=== PATIENT | female | born 1930 | race Caucasian/White ===

== ENCOUNTER 2017-03-12 07:40 | Inpatient (IN) ==
--- OUTSIDE RECORDS SUMMARY | 2017-03-12 08:09 | External Medical Summary ---
:1930 Author Organization eClinicalWorks Care Team Providers Name Role Phone Suri Morris Provider Role Unavailable Allergies, Adverse Reactions, Alerts Substance Reaction Event Type N.K.D.A. Info Not Available Non Drug Allergy Problems Problem Type Condition Code Onset Dates Condition Status Assessment Painful urination R30.9 Active Assessment Polyarthralgia M25.50 Active Problem Polyarthralgia M25.50 Active Assessment Urinary tract infection without N39.0 Active hematuria, site unspecified Medications Medication Code System Code Instructions Start Date End Date Status Dosage Keflex NDC 06392-639 500 mg Orally September 17, 1 capsule 7-20 Twice a day 2015 Pyridium NDC 01489-105 200 MG Orally September 17, 1 tablet 1-24 Three times a day 2016 after meals [place] NDC [address]7942-984 10-325 MG Orally August 20, 1 tablet 0-73 every 6 hrs 2016 Procedures Procedure Coding System Code Date Office Visit, Est Pt., Level 3 CPT-4 15732 September 18, 2015 TOBACCO NON-USER CPT-4 1036F September 18, 2015 URINALYSIS CPT-4 64372 September 18, 2015 BP SCR PRFRM RCMDD DEFIND SCR INTVL CPT-4 G8783 September 18, 2015 Vital Signs Date/Time: September 18, 2015 Weight 159.0 lbs Height 64 in Temperature 98.2 F Pulse 75 /min Blood Pressure Diastolic 66 mm Hg Blood Pressure Systolic 133 mm Hg Weight Change -1.8 lb lbs BMI 27.29 Index Oximetry 93%RA % Results Name Result Date Reference Range Unit Abnormality Flag *Urine Culture ----Urine Culture Source: Urine [id number] Collected: 09/18/15 13:50 Summary Purpose eClinicalWorks Submission
--- OUTSIDE RECORDS SUMMARY | 2017-03-12 08:09 | External Medical Summary ---
:1930 Author Organization [employer] Care Team Providers Name Role Phone Franklin Hu Provider Role Unavailable Allergies No Known Allergies Problems Problem Type Condition Code Onset Dates Condition Status Assessment Polyarthralgia M25.50 Active Problem Polyarthralgia M25.50 Active Medications Medication Code System Code Instructions Start Date End Date Status Dosage [facility] 2001 [address] 10-325 MG Orally August 20 tablet -73 every 6 hrs 2015 Results No Known Results Summary Purpose [employer] Submission
--- OUTSIDE RECORDS SUMMARY | 2017-03-12 08:09 | External Medical Summary ---
:1930 Author Organization eClinicalWorks Care Team Providers Name Role Phone Dalton Aparicio Provider Role Unavailable Allergies No Known Allergies Problems Problem Type Condition Code Onset Dates Condition Status Problem Polyarthralgia M25.50 Active Medications No Known Medications Results No Known Results Summary Purpose eClinicalWorks Submission
--- OUTSIDE RECORDS SUMMARY | 2017-03-12 08:09 | External Medical Summary ---
:1930 Author Organization eClinicalWorks Care Team Providers Name Role Phone Dalton Aparicio Provider Role Unavailable Allergies, Adverse Reactions, Alerts Substance Reaction Event Type N.K.D.A. Info Not Available Non Drug Allergy Problems Problem Type Condition Code Onset Dates Condition Status Assessment Chronic pain syndrome G89.4 Active Problem Polyarthralgia M25.50 Active Medications Medication Code System Code Instructions Start Date End Date Status Dosage [place] [facility] [address] 10-325 MG Orally Apr 16, 1 tablet as 0-73 every 12 hrs 2015 [place] [address] 0.5 MG Orally July 15July 16, 1 tablet 0-01 every12 hrs 2015 2015 [place] [address] 10-325 MG Orally August 20, 1 tablet 0-73 every 6 hrs 2015 Cipro NDC 94725-502 250 MG Orally July 15July 22, 1 tablet 8-02 every 12 hrs 2015 2015 Procedures Procedure Coding System Code Date TOBACCO NON-USER CPT-4 1036F August 21, 2015 BP SCR PRFRM RCMDD DEFIND SCR INTVL CPT-4 G8783 August 21, 2015 Office Visit, Est Pt., Level 3 CPT-4 04899 August 21, 2015 Vital Signs Date/Time: August 21, 2015 Weight 160.8 lbs Height 64 in Temperature 98.2 F Pulse 86 /min Blood Pressure Diastolic 64 mm Hg Blood Pressure Systolic 117 mm Hg Weight Change .6 lb lbs BMI 27.60 Index Oximetry 94% ra % Results No Known Results Summary Purpose [employer]ClinicalWorks Submission
--- OUTSIDE RECORDS SUMMARY | 2017-03-12 08:10 | External Medical Summary ---
:1930 Author Organization [employer]ClinicalWorks Care Team Providers Name Role Phone Suri Morris Provider Role Unavailable Allergies, Adverse Reactions, Alerts Substance Reaction Event Type N.K.D.A. Info Not Available Non Drug Allergy Problems Problem Type Condition Code Onset Dates Condition Status Problem History of smoking for 6-10 years Z87.891 Active Problem Polyarthralgia M25.50 Active Problem Generalized anxiety disorder F41.1 Active Assessment Impacted cerumen of left ear H61.22 Active Assessment Polyarthralgia M25.50 Active Assessment Generalized anxiety disorder F41.1 Active Medications Medication Code Code Instructions Start End Date Status [place] [address]-79 10 MG Orally Nov 14, 1 tablet Oxalate 51-01 Once a day 2015 [place] [address] 325-10 MG Orally Oct 16, 1 tablet as 51-30 every 6 hrs 2016 [place] [address]-76 6.5 % Otic Twice Jan 16, 5 drops 91-59 a day 2016 into affected ear Procedures Procedure Coding System Code Date TOBACCO NON-USER CPT-4 1036F Jan 17, 2016 PREHTN/HTN BP DOC INDCD F/U DOC CPT-4 G8950 Jan 17, 2016 Office Visit, Est Pt., Level 3 CPT-4 71602 Jan 17, 2016 Vital Signs Date/Time: Jan 17, 2016 Weight 158.0 lbs Height 64 in Temperature 97.5 F Pulse 70 /min Blood Pressure Diastolic 60 mm Hg Blood Pressure Systolic 112 mm Hg Weight Change 1.2 lb lbs BMI 27.12 Index Oximetry 93%RA % Results No Known Results Summary Purpose eClinicalWorks Submission
--- OUTSIDE RECORDS SUMMARY | 2017-03-12 08:10 | External Medical Summary ---
:1930 Author Organization eClinicalWorks Care Team Providers Name Role Phone Franklin Hu Provider Role Unavailable Allergies, Adverse Reactions, Alerts Substance Reaction Event Type N.K.D.A. Info Not Available Non Drug Allergy Problems Problem Type Condition Code Onset Dates Condition Status Assessment Breast lump in female N63 Active Assessment History of smoking for 6-10 years Z87.891 Active Problem Polyarthralgia M25.50 Active Assessment Medicare annual wellness visit, Z00.00 Active initial Problem History of smoking for 6-10 years Z87.891 Active Assessment Screening for heart disease Z13.6 Active Assessment Bilateral impacted cerumen H61.23 Active Assessment High risk medication use Z79.899 Active Assessment Polyarthralgia M25.50 Active Medications Medication Code System Code Instructions Start Date End Date Status Dosage Keflex NDC 64812-302 500 mg Orally September 17, 1 capsule 7-20 Twice a day 2015 Pyridium NDC [address]-966 200 MG Orally September 17, 1 tablet 1-24 Three times a day 2016 after meals [place] NDC 50385-609 6.5 % Otic daily September 23, 3 ggts to 1-59 2015 susan ears [place] NDC [address]-835 10-325 MG Orally August 20, 1 tablet 0-73 every 6 hrs 2016 Procedures Procedure Coding System Code Date COMPREHEN METABOLIC PANEL CPT-4 67064 September 24, 2015 CHEST X-RAY CPT-4 70708 September 24, 2015 COMPLETE CBC W/AUTO DIFF WBC CPT-4 23470 September 24, 2015 BP SCR PRFRM RCMDD DEFIND SCR INTVL CPT-4 G8783 September 24, 2015 LIPID PANEL CPT-4 48910 September 24, 2015 -ELECTROCARDIOGRAM, COMPLETE CPT-4 79893 September 24, 2015 TOBACCO NON-USER CPT-4 1036F September 24, 2015 Medicare Wellness CPT-4 G0438 September 24, 2015 Vital Signs Date/Time: September 24, 2015 Weight 157.0 lbs Height 64 in Temperature 97.9 F Pulse 75 /min Blood Pressure Diastolic 70 mm Hg Blood Pressure Systolic 110 mm Hg Weight Change -2 lb lbs BMI 26.95 Index Oximetry 96% % Results Name Result Date Reference Range Unit Abnormality Flag *CBC With Platelet and Differential ----Immature Granulocytes 0.0 75962078 0.0-1.0 % ----Platelet Count 233 56375362 150-400 K/uL ----Monocytes 9 10548121 4-11 % ----HGB 12.2 26041259 12.0-16.0 g/dL ----Lymphocytes 24 51189746 20-46 % ----HCT 38.8 30807124 37.0-47.0 % ----Neutrophils 66 11436667 51-75 % ----MCV 90.0 09695550 82.0-99.0 fL ----Absolute Basophils 0.01 43070325 0.00-0.20 10*3 ----MCH 28.3 56471867 27.0-32.0 pg ----Absolute Eosinophils 0.07 58551348 0.00-0.50 10*3 ----MCHC 31.4 88468496 32.0-36.0 g/dL L ----Eosinophils 1 62088408 0-4 % ----Absolute Monocytes 0.61 61942417 0.30-1.00 10*3 ----RDW 14.4 81535601 11.5-14.5 % ----Basophils 0 35461468 0-2 % ----WBC 6.9 65607322 4.8-10.8 K/uL ----MPV 11.8 44379604 8.8-14.8 fL ----Absolute Lymphocytes 1.63 89821528 0.80-3.30 10*3 ----RBC 4.31 85042959 4.00-5.20 10*6/uL ----Absolute Neutrophils 4.57 24955685 1.90-7.00 10*3 *Comprehensive Metabolic Panel (CMP) ----AST (SGOT) 14 46876067 5-34 U/L ----Sodium 140 40678324 135-144 mEq/L ----Calcium 9.6 61159778 8.9-10.5 mg/dL ----ALT (SGPT) 11 17291257 0-55 U/L ----Chloride 106 86195405 99-111 mEq/L ----Protein 7.3 04933894 6.0-7.6 g/dL ----Potassium 4.7 15723548 3.5-5.2 mEq/L ----Alkaline Phosphatase 81 42909622 40-150 U/L ----Glucose 79 33883299 70-99 mg/dL ----Globulin 3.0 84906891 1.8-4.0 g/dL ----Creatinine 0.76 94176538 0.57-1.11 mg/dL ----Anion Gap 9 81710186 3-20 ----BUN 19 10437362 10-20 mg/dL ----Bilirubin Total 0.5 51317136 0.2-1.2 mg/dL ----CO2 25 57624601 22-31 mEq/L ----Albumin 4.3 35471775 3.4-4.8 g/dL Chest X-ray PA and lateral Electrocardiogram (EKG) Non-HDL Cholesterol ----Non-HDL Cholesterol 217 97140463 0-159 mg/dL H eGFR ----eGFR >60 60220405 >60 mL/min *Lipid Panel ----HDL Cholesterol 55 34350576 40-84 mg/dL ----Triglycerides 134 99576006 0-149 mg/dL ----VLDL Cholesterol 27 99745474 0-28 mg/dL ----LDL Cholesterol 190 00611210 0-130 mg/dL H ----Cardiac Risk 4.9 24217440 0.0-5.0 ----Cholesterol 272 21017563 0-199 mg/dL H Summary Purpose eClinicalWorks Submission
[2017-03-12] MEDS ORDERED: PROCHLORPERAZINE 10 MG/2 ML INJECTION IVP ONE (08:26)
[2017-03-12] MEDS ORDERED: NS 1,000 ML IV ONE (08:26)
[2017-03-12] MEDS ORDERED: SALINE FLUSH 10ml SYRINGE IVF PRN (08:26)
--- NOTE | 2017-03-12 09:11 | XRay Report ---
Indication: n/v PROCEDURE: XR KUB w upright: Encounter: Initial Comparison: August 09, 2012 Findings: Lung bases are grossly clear. No free air identified. Nonobstructive nonspecific bowel gas pattern. Large amount of stool throughout the colon. Scoliosis and degenerative change in the spine with numerous chronic compression fractures in the lower thoracic and lumbar spine. Right femoral head replacement. Impression: Nonobstructive, nonspecific bowel gas pattern. .
--- NOTE | 2017-03-12 09:49 | Emergency Department Report ---
General Adult HPI - General Chief complaint: Medical Emergency Stated complaint: dehydrated,vominiting,cant sleep,cant urninate Time Seen by Provider: 03/12/17 07:46 - Related Data Home Medications Medication Instructions Recorded Confirmed Escitalopram [Lexapro] 10 mg PO HS 03/09/17 03/12/17 Hydrocodone/APAP 10/325 [[place] 1 tab PO Q6H PRN 03/09/17 03/12/17 10/325] Ibuprofen/Diphenhydramine Cit 1 each PO HS 03/09/17 03/12/17 [Advil Pm Caplet] Previous Rx's Medication Instructions Recorded CephALEXin [Keflex] 1 tab PO TID #21 cap 03/09/17 Ondansetron [Zofran Odt] 1 tab PO Q6HR PRN #12 tab 03/09/17 Allergies Allergy/AdvReac Type Severity Reaction Status Date / Time No Known Allergies Allergy Verified 03/12/17 07:54 PFSH Patient Stated Medical History Osteoarthritis Yes - Social History Smoking status: Former smoker Course Vital Signs Temperature 98.2 F 03/12/17 07:55 Pulse Rate 77 03/12/17 07:55 Respiratory Rate 16 03/12/17 07:55 Blood Pressure 131/67 03/12/17 07:55 Pulse Oximetry 94 03/12/17 07:55 Temperature 98.2 F 03/12/17 07:55 Pulse Rate 84 03/12/17 08:30 Respiratory Rate 16 03/12/17 07:55 Blood Pressure 138/60 03/12/17 08:30 Pulse Oximetry 96 03/12/17 08:30 Medical Decision Making - Lab Data Result diagrams: 03/12/17 08:23 03/12/17 08:23 Lab Results 03/12/17 03/12/17 03/12/17 Range/Units 08:23 08:23 09:51 WBC 5.8 (4.5-11.0) T/MM3 RBC 3.09 L (4.00-5.20) M/MM3 Hgb 8.8 L (12-16) GM/DL Hct 26.3 L (36-46) % MCV 85.1 (80-100) UM3 MCH 28.5 (26-34) UUG MCHC 33.5 (31-37) GM/DL RDW Std Deviation 38.0 (36.9-50.2) FL Plt Count 168 (130-400) T/MM3 MPV 10.6 (9.4-12.4) UM3 Immature Gran % (Auto) 0.2 (0.0-0.5) % Neut % (Auto) 63.4 (33-66) % Lymph % (Auto) 25.8 (23-45) % [place] % (Auto) 10.4 H (0-9.0) % Eos % (Auto) 0.2 (0-4) % Baso % (Auto) 0.0 (0-2) % Neut # (Auto) 3.7 (1.8-7.7) T/MM3 Lymph # (Auto) 1.5 (1-4.8) T/MM3 [place] # (Auto) 0.6 (0-0.8) T/MM3 Eos # (Auto) 0.0 (0-0.5) T/MM3 Baso # (Auto) 0.0 (0-0.2) T/MM3 Abs Immat Gran (auto) 0.01 (0.00-0.03) T/MM3 Turbidity < 20 (0-20) Sodium 119 L* (134-144) MEQ/L Potassium 3.2 L D (3.6-5) MEQ/L Chloride 89 L (98-107) MEQ/L Carbon Dioxide 24 (22-30) MEQ/L Anion Gap 6 (5-15) MEQ/L BUN 11.0 D (7-17) MG/DL Creatinine 0.6 L (0.7-1.2) MG/DL GFR Calculation 95 BUN/Creatinine Ratio 18 (6-26) RATIO Glucose 99 (65-110) MG/DL Calculated Osmolality 229 L (261-280) MOSM/KG Calcium 8.8 (8.4-10.2) MG/DL Total Bilirubin 0.50 (0.20-1.30) MG/DL Icterus Index < 2 (0-7) AST 32 D (14-36) U/L ALT 38 (9-52) U/L Alkaline Phosphatase 103 (38-126) U/L Total Protein 6.6 (6.3-8.2) G/DL Albumin 3.6 (3.5-5.0) G/DL Globulin 3.0 (2.4-3.6) G/DL Albumin/Globulin Ratio 1.2 (1.1-2.2) RATIO Lipase 114 (23-300) U/L Specimen Hemolysis 17 (0-25) Ur Collection Type Urine, clean catch Urine Color Yellow (YELLOW) Urine Clarity Clear Urine pH 6.5 (5.0-8.0) Ur Specific [place] <=1.005 L (1.015-1.025) Urine Protein Negative (NEGATIVE) Urine Glucose (UA) Negative (NEGATIVE) Urine Ketones Negative (NEGATIVE) Urine Occult Blood Negative (NEGATIVE) Urine Nitrate Negative (NEGATIVE) Urine Bilirubin Negative (NEGATIVE) Urine Urobilinogen 0.2 (NORMAL) EU/DL Ur Leukocyte Esterase Negative (NEGATIVE) Urinalysis Comment Microscopic not ind. Disposition
[2017-03-12] MEDS ORDERED: ONDANSETRON 4 MG/2 ML INJECTION IVP PRN (10:42)
[2017-03-12] MEDS ORDERED: NS 1,000 ML IV SCH ×2 (10:43→10:45)
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
[2017-03-12 11:08] VITALS: BMI 26.6
[2017-03-12] MEDS ORDERED: HYDROCODONE/APAP 10 MG/325 MG TABLET PO PRN (11:10)
[2017-03-12] MEDS ORDERED: ACETAMINOPHEN 325 MG TABLET PO PRN (14:04)
[2017-03-12] MEDS: NS 1,000 ML IV SCH (14:50)
[2017-03-12] MEDS: DiphenhydrAMINE 25 MG CAPSULE PO SCH (20:56)
[2017-03-12] MEDS: IBUPROFEN 200 MG TABLET PO SCH (20:56)
[2017-03-12] MEDS ORDERED: NON-FORMULARY MEDICATION 1 EACH EACH (Ibuprofen/Diphenhydramine Cit [Advil Pm Caplet] 1 EA PO SCH (21:00)
[2017-03-13] MEDS: NS 1,000 ML IV SCH (05:21)
[2017-03-13] MEDS ORDERED: POLYETHYL GLYCOL 3350 17gm PACKET PO PRN (12:36)
[2017-03-13] MEDS ORDERED: BISACODYL 10 MG SUPPOSITORY RECTALLY PRN (12:36)
--- NOTE | 2017-03-13 14:27 | Progress Note ---
- Date 03/13/17 Subjective: F/U: Hyponatremia, weakness Feeling better today. Less weak (not 100% better), able to move more. Notes unsteadiness when up. Appetite decreased-takes bites of food. Not feeling hungry. Has been eating like this at home for some time. No nausea. Did have bowel movement following MOM use. Breathing well. No pain with breathing. Notes minor cough, but no chest congestion. Objective Vital signs: Temperature 98.7 F 03/13/17 07:57 Pulse Rate 87 03/13/17 08:00 Respiratory Rate 16 03/13/17 07:57 Blood Pressure 125/67 03/13/17 07:57 Pulse Oximetry 93 03/13/17 07:57 Height/Weight/BMI: Height 1.63 m Weight 70.5 kg Body Mass Index 26.6 - Constitutional Present: well nourished, well developed, average body habitus, cooperative - Routine HEENT Exam Head: Present: normocephalic, atraumatic Eye: Present: EOMI, PERRL ENT: Present: mucous membranes moist - Routine Respiratory Exam Present: decreased breath sounds. Absent: respiratory distress, rhonchi, wheezes, crackles - Routine Cardiovascular Exam Present: RRR, no murmur - Routine Abdominal Exam Present: soft, normoactive bowel sounds, non distended, non tender. Absent: guarding - Routine Extremities Exam Present: no edema. Absent: cyanosis, clubbing Comments: SCD in place - Routine Musculoskeletal Exam Musculoskeletal: Present: no clubbing or cyanosis - Routine Skin Exam Present: dry, warm - Routine Neurological Exam Present: alert, CN II-XII intact, moving all extremities, normal speech. Absent : motor deficit, altered mental status - Routine Psychiatric Exam Present: normal affect, cooperative Results - Labs CBC & Chem 7: 03/13/17 03:59 03/13/17 11:49 Assessment and Plan (1) Hyponatremia Current visit: Yes Status: Acute (2) Hypokalemia Current visit: Yes Status: Acute (3) Weakness Current visit: Yes Status: Acute Assessment and Plan: Impression Hyponatremia (POA) - 119 Hypokalemia (POA) - 3.2 Weakness Hypovolemia - FENa score 1% Neuropathy Anxiety Osteoarthritis History of cerebral hemorrhage/brain injury Anemia - suspect chronic disease Gait instability Generalized debility. Plan Sodium increased to 127 this morning, 132 with recheck at noon. Potassium normal at 3.8. Strength improving. Mentation clearing. Will continue with NS at 50cc/hr to help with hydration and normalize serum sodium. Consult PT/OT secondary to her generalize debility and gait instability. Nutritional supplement daily due to decreased oral drive. Check B12, iron and ferritin due to anemia. Recheck BMP in am secondary to hyponatremia and CBC in am secondary to anemia. Case discussed with CM and family. Time spent with patient care 25 minutes. DVT Prophylaxis: SCD's Resuscitation Status: Full Code - Time spent with patient Time with patient PN: 25 minutes - Physician Narrative Narrative: Date: 03/13/17 Time: 1423 Hospital Course Summary Disclaimer: The visit summary below is not to be considered part of the above Progress Note. Hospital Course: 03/12/17 - admission Impression Weakness Hyponatremia- POA- 199 Hypokalemia- POA- 3.2 Hypovolemia- FENa score 1% Neuropathy Anxiety Osteoarthritis History of cerebral hemorrhage/brain injury Plan Admit patient. Inpatient status under care of Dr. Espinosa for weakness, hyponatremia, hypokalemia Hyponatremia is likely multifactorial. Patient has had decreased oral intake recently. She is also been on Bactrim and Lexapro, both which can cause hyponatremia. We will initiate IV fluids. Patient did receive 1 liter of normal saline in the emergency room. We will continue with normal saline at 75 ML per hour for gentle hydration. We will check serial electrolytes, next lab draw at 1300. Zofran available as needed for nausea Urinalysis is rechecked and is negative for acute infectious process. In no evidence of acute infectious process, normal white count and afebrile. There is currently no indication to continue antibiotics. FENa- 1% indications likely Pre-renal hypovolemia Monitor patient. Cardiac telemetry given electrolyte abnormalities. Review home medications. Once patient is more medically stable. Will place PT and OT consultations to evaluate patients strength she does reside independently and ambulates with a cane generally. We'll recheck CBC and BMP tomorrow morning to follow blood counts, renal function and electrolytes. Will discuss further orders and plan a. Attending, Dr. Espinosa. Patients family does request for her to be a full code and this orders written. At time of discharge medical care will return to her primary care provider, Dr. Dalton Aparicio Above corrections Impression Correction of above document Impression Hyponatremia- POA- 119 Hypokalemia- POA- 3.2 Weakness Hypovolemia- FENa score 1% Neuropathy Anxiety Osteoarthritis History of cerebral hemorrhage/brain injury Plan Admit patient. Inpatient status under care of Dr. Espinosa for weakness, hyponatremia, hypokalemia Hyponatremia is likely multifactorial. Patient has had decreased oral intake recently. She is also been on Bactrim and Lexapro, both which can cause hyponatremia. We will initiate IV fluids. Patient did receive 1 liter of normal saline in the emergency room. We will continue with normal saline at 75 ML per hour for gentle hydration. We will check serial electrolytes, next lab draw at 1300. Zofran available as needed for nausea Urinalysis is rechecked and is negative for acute infectious process. In no evidence of acute infectious process, normal white count and afebrile. There is currently no indication to continue antibiotics. FENa- 1% indications likely Pre-renal hypovolemia Monitor patient. Cardiac telemetry given electrolyte abnormalities. Review home medications. Once patient is more medically stable. Will place PT and OT consultations to evaluate patients strength she does reside independently and ambulates with a cane generally. We'll recheck CBC and BMP tomorrow morning to follow blood counts, renal function and electrolytes. Will discuss further orders and plan a. Attending, Dr. Espinosa. Patients family does request for her to be a full code and this orders written. At time of discharge medical care will return to her primary care provider, Dr. Dalton Aparicio 03/13/17 Sodium increased to 127 this morning, 132 with recheck at noon. Potassium normal at 3.8. Strength improving. Mentation clearing. Will continue with NS at 50cc/hr to help with hydration and normalize serum sodium. Consult PT/OT secondary to her generalize debility and gait instability. Nutritional supplement daily due to decreased oral drive. Check B12, iron and ferritin due to anemia. Recheck BMP in am secondary to hyponatremia and CBC in am secondary to anemia.
[2017-03-13] MEDS: IBUPROFEN 200 MG TABLET PO SCH (20:50)
[2017-03-13] MEDS: DiphenhydrAMINE 25 MG CAPSULE PO SCH (20:50)
[2017-03-14] MEDS: NS 1,000 ML IV SCH ×3 (02:28→09:31)
[2017-03-14] MEDS ORDERED: MAGNESIUM OXIDE 400 MG TABLET PO ONE (12:30)
--- NOTE | 2017-03-14 12:53 | Progress Note ---
- Date 03/14/17 Subjective: F/U: Hyponatremia, weakness Feeling a little better. Appetite with gradual improvements-less nausea. Breathing well. Strength with gradual improvement. No having f/c. Daughter at bedside. Objective Vital signs: Temperature 97.0 F 03/14/17 07:18 Pulse Rate 76 03/14/17 07:18 Respiratory Rate 18 03/14/17 07:18 Blood Pressure 138/77 03/14/17 07:18 Pulse Oximetry 97 03/14/17 07:18 Height/Weight/BMI: Height 1.63 m Weight 71.9 kg Body Mass Index 26.6 - Constitutional Present: well nourished, well developed, average body habitus, cooperative - Routine HEENT Exam Head: Present: normocephalic, atraumatic Eye: Present: EOMI, PERRL ENT: Present: mucous membranes moist - Routine Respiratory Exam Present: decreased breath sounds. Absent: rales, respiratory distress, rhonchi , wheezes, crackles - Routine Cardiovascular Exam Present: RRR, no murmur - Routine Abdominal Exam Present: soft, normoactive bowel sounds, non distended, non tender. Absent: guarding - Routine Extremities Exam Present: no edema, pulses intact. Absent: cyanosis, clubbing Comments: SCD in place - Routine Musculoskeletal Exam Musculoskeletal: Present: no clubbing or cyanosis - Routine Skin Exam Present: dry, warm - Routine Neurological Exam Present: alert, CN II-XII intact, moving all extremities, vision grossly intact , hearing grossly intact, normal speech. Absent: motor deficit, altered mental status - Routine Psychiatric Exam Present: normal affect, cooperative Results - Labs CBC & Chem 7: 03/14/17 03:56 03/14/17 03:56 Assessment and Plan (1) Hyponatremia Current visit: Yes Status: Acute (2) Hypokalemia Current visit: Yes Status: Acute (3) Weakness Current visit: Yes Status: Acute Assessment and Plan: Impression Hyponatremia (POA) - 119 Hypokalemia (POA) - 3.2 Weakness Hypovolemia - FENa score 1% Neuropathy Anxiety Osteoarthritis History of cerebral hemorrhage/brain injury Anemia - suspect chronic disease Gait instability Generalized debility. Plan Sodium increased to 131 this morning, Potassium decreased to 3.5. Strength improving. Mentation clearing. Continue with NS at 50cc/hr to help with hydration and normalize serum sodium. Nursing to ambulate TID to help strength. Encourage oral intake - may have outside food brought in. Discussed with daughter about potential skilled care to help improve pt's strength. Concern they have is that patient will want her daughters to be with her there. Recheck BMP in am secondary to hyponatremia and CBC in am secondary to anemia. Case discussed with CM and family. Time spent with patient care 25 minutes. DVT Prophylaxis: SCD's - Time spent with patient Time with patient PN: 15 minutes - Physician Narrative Physician: Nico Espinosa MD Narrative: Date: 03/14/17 Time: 1248 Hospital Course Summary Disclaimer: The visit summary below is not to be considered part of the above Progress Note. Hospital Course: 03/12/17 - admission Impression Weakness Hyponatremia- POA- 199 Hypokalemia- POA- 3.2 Hypovolemia- FENa score 1% Neuropathy Anxiety Osteoarthritis History of cerebral hemorrhage/brain injury Plan Admit patient. Inpatient status under care of Dr. Espinosa for weakness, hyponatremia, hypokalemia Hyponatremia is likely multifactorial. Patient has had decreased oral intake recently. She is also been on Bactrim and Lexapro, both which can cause hyponatremia. We will initiate IV fluids. Patient did receive 1 liter of normal saline in the emergency room. We will continue with normal saline at 75 ML per hour for gentle hydration. We will check serial electrolytes, next lab draw at 1300. Zofran available as needed for nausea Urinalysis is rechecked and is negative for acute infectious process. In no evidence of acute infectious process, normal white count and afebrile. There is currently no indication to continue antibiotics. FENa- 1% indications likely Pre-renal hypovolemia Monitor patient. Cardiac telemetry given electrolyte abnormalities. Review home medications. Once patient is more medically stable. Will place PT and OT consultations to evaluate patients strength she does reside independently and ambulates with a cane generally. We'll recheck CBC and BMP tomorrow morning to follow blood counts, renal function and electrolytes. Will discuss further orders and plan a. Attending, Dr. Espinosa. Patients family does request for her to be a full code and this orders written. At time of discharge medical care will return to her primary care provider, Dr. Dalton Aparicio Above corrections Impression Correction of above document Impression Hyponatremia- POA- 119 Hypokalemia- POA- 3.2 Weakness Hypovolemia- FENa score 1% Neuropathy Anxiety Osteoarthritis History of cerebral hemorrhage/brain injury Plan Admit patient. Inpatient status under care of Dr. Espinosa for weakness, hyponatremia, hypokalemia Hyponatremia is likely multifactorial. Patient has had decreased oral intake recently. She is also been on Bactrim and Lexapro, both which can cause hyponatremia. We will initiate IV fluids. Patient did receive 1 liter of normal saline in the emergency room. We will continue with normal saline at 75 ML per hour for gentle hydration. We will check serial electrolytes, next lab draw at 1300. Zofran available as needed for nausea Urinalysis is rechecked and is negative for acute infectious process. In no evidence of acute infectious process, normal white count and afebrile. There is currently no indication to continue antibiotics. FENa- 1% indications likely Pre-renal hypovolemia Monitor patient. Cardiac telemetry given electrolyte abnormalities. Review home medications. Once patient is more medically stable. Will place PT and OT consultations to evaluate patients strength she does reside independently and ambulates with a cane generally. We'll recheck CBC and BMP tomorrow morning to follow blood counts, renal function and electrolytes. Will discuss further orders and plan a. Attending, Dr. Espinosa. Patients family does request for her to be a full code and this orders written. At time of discharge medical care will return to her primary care provider, Dr. Dalton Aparicio 03/13/17 Sodium increased to 127 this morning, 132 with recheck at noon. Potassium normal at 3.8. Strength improving. Mentation clearing. Will continue with NS at 50cc/hr to help with hydration and normalize serum sodium. Consult PT/OT secondary to her generalize debility and gait instability. Nutritional supplement daily due to decreased oral drive. Check B12, iron and ferritin due to anemia. Recheck BMP in am secondary to hyponatremia and CBC in am secondary to anemia. 03/14/17 Sodium increased to 131 this morning, Potassium decreased to 3.5. Strength improving. Mentation clearing. Continue with NS at 50cc/hr to help with hydration and normalize serum sodium. Nursing to ambulate TID to help strength. Encourage oral intake - may have outside food brought in. Discussed with daughter about potential skilled care to help improve pt's strength. Concern they have is that patient will want her daughters to be with her there.
[2017-03-14] MEDS: IBUPROFEN 200 MG TABLET PO SCH (21:18)
[2017-03-14] MEDS: DiphenhydrAMINE 25 MG CAPSULE PO SCH (21:19)
[2017-03-14 23:43] VITALS: RESP 22
[2017-03-15] MEDS: NS 1,000 ML IV SCH (01:29)
[2017-03-15 07:29] VITALS: BP 129/69; PULSE 90; TEMP 97; O2SAT 96
--- NOTE | 2017-03-15 13:24 | Progress Note ---
- Date 03/15/17 Subjective: F/U: Hyponatremia, weakness Doing well this morning. Strength to baseline. Eating well (eats small portions at a time, but has frequents snacks between meals). Breathing well. Mentation clear. Daughter at bedside, encouraged about patient's improvement. Does feel pt is doing well enough to go home. Objective Vital signs: Temperature 97.0 F 03/15/17 07:28 Pulse Rate 90 03/15/17 07:28 Respiratory Rate 22 03/15/17 07:28 Blood Pressure 129/69 03/15/17 07:28 Pulse Oximetry 96 03/15/17 07:28 Height/Weight/BMI: Height 1.63 m Weight 69.1 kg Body Mass Index 26.6 - Constitutional Present: no acute distress, well nourished, average body habitus, cooperative - Routine HEENT Exam Head: Present: normocephalic, atraumatic Eye: Present: EOMI, PERRL ENT: Present: mucous membranes moist - Routine Respiratory Exam Present: CTA bilaterally. Absent: respiratory distress, rhonchi, wheezes, crackles - Routine Cardiovascular Exam Present: RRR, no murmur - Routine Abdominal Exam Present: soft, normoactive bowel sounds, non distended, non tender - Routine Extremities Exam Present: no edema. Absent: cyanosis, clubbing Comments: SCD in place - Routine Musculoskeletal Exam Musculoskeletal: Present: normal strength. Absent: no clubbing or cyanosis - Routine Skin Exam Present: dry, warm - Routine Neurological Exam Present: alert, oriented X3, CN II-XII intact, moving all extremities, vision grossly intact, hearing grossly intact, normal speech. Absent: motor deficit, altered mental status - Routine Psychiatric Exam Present: cooperative. Absent: normal affect, agitated Results - Labs CBC & Chem 7: 03/15/17 04:18 03/15/17 04:18 Assessment and Plan (1) Hyponatremia Current visit: Yes Status: Acute (2) Hypokalemia Current visit: Yes Status: Acute (3) Weakness Current visit: Yes Status: Acute Assessment and Plan: Impression Hyponatremia (POA) - 119 Hypokalemia (POA) - 3.2 Weakness Hypovolemia - FENa score 1% Neuropathy Anxiety Osteoarthritis History of cerebral hemorrhage/brain injury Anemia - suspect chronic disease Gait instability Generalized debility. Plan Sodium has normalized to 135. Strength and mentation at baseline. Eating well. Breathing well. Vit B12, Iron, Jo Ann pending. Discussed about discharge - daughter feels patient ready to go home. Daughter does not feel skill care would be helpful-family very capable with pt's care needs. No evidence of urinary tract infection this hospitalization - does not need antibiotics. Can discharge to home. CM to discuss about possible home health. Will have patient follow up with Dr Busby in 1 week for evaluation. Recommend rechecking BMP at that time due to hyponatremia. Have held Lexapro this hospitalization - potentially could cause hyponatremia. If repeat sodium showing decrease at follow up, changes to Lexapro could be done. See orders for details. Case discussed with CM and family. Time spent with patient care and discharge greater than 30 minutes. DVT Prophylaxis: SCD's Resuscitation Status: Full Code - Physician Narrative Physician: Nico Espinosa MD Narrative: Date: 03/15/17 Time: 1321 Hospital Course Summary Disclaimer: The visit summary below is not to be considered part of the above Progress Note. Hospital Course: 03/12/17 - admission Impression Weakness Hyponatremia- POA- 199 Hypokalemia- POA- 3.2 Hypovolemia- FENa score 1% Neuropathy Anxiety Osteoarthritis History of cerebral hemorrhage/brain injury Plan Admit patient. Inpatient status under care of Dr. Espinosa for weakness, hyponatremia, hypokalemia Hyponatremia is likely multifactorial. Patient has had decreased oral intake recently. She is also been on Bactrim and Lexapro, both which can cause hyponatremia. We will initiate IV fluids. Patient did receive 1 liter of normal saline in the emergency room. We will continue with normal saline at 75 ML per hour for gentle hydration. We will check serial electrolytes, next lab draw at 1300. Zofran available as needed for nausea Urinalysis is rechecked and is negative for acute infectious process. In no evidence of acute infectious process, normal white count and afebrile. There is currently no indication to continue antibiotics. FENa- 1% indications likely Pre-renal hypovolemia Monitor patient. Cardiac telemetry given electrolyte abnormalities. Review home medications. Once patient is more medically stable. Will place PT and OT consultations to evaluate patients strength she does reside independently and ambulates with a cane generally. We'll recheck CBC and BMP tomorrow morning to follow blood counts, renal function and electrolytes. Will discuss further orders and plan a. Attending, Dr. Espinosa. Patients family does request for her to be a full code and this orders written. At time of discharge medical care will return to her primary care provider, Dr. Dalton Aparicio Above corrections Impression Correction of above document Impression Hyponatremia- POA- 119 Hypokalemia- POA- 3.2 Weakness Hypovolemia- FENa score 1% Neuropathy Anxiety Osteoarthritis History of cerebral hemorrhage/brain injury Plan Admit patient. Inpatient status under care of Dr. Espinosa for weakness, hyponatremia, hypokalemia Hyponatremia is likely multifactorial. Patient has had decreased oral intake recently. She is also been on Bactrim and Lexapro, both which can cause hyponatremia. We will initiate IV fluids. Patient did receive 1 liter of normal saline in the emergency room. We will continue with normal saline at 75 ML per hour for gentle hydration. We will check serial electrolytes, next lab draw at 1300. Zofran available as needed for nausea Urinalysis is rechecked and is negative for acute infectious process. In no evidence of acute infectious process, normal white count and afebrile. There is currently no indication to continue antibiotics. FENa- 1% indications likely Pre-renal hypovolemia Monitor patient. Cardiac telemetry given electrolyte abnormalities. Review home medications. Once patient is more medically stable. Will place PT and OT consultations to evaluate patients strength she does reside independently and ambulates with a cane generally. We'll recheck CBC and BMP tomorrow morning to follow blood counts, renal function and electrolytes. Will discuss further orders and plan a. Attending, Dr. Espinosa. Patients family does request for her to be a full code and this orders written. At time of discharge medical care will return to her primary care provider, Dr. Dalton Aparicio 03/13/17 Sodium increased to 127 this morning, 132 with recheck at noon. Potassium normal at 3.8. Strength improving. Mentation clearing. Will continue with NS at 50cc/hr to help with hydration and normalize serum sodium. Consult PT/OT secondary to her generalize debility and gait instability. Nutritional supplement daily due to decreased oral drive. Check B12, iron and ferritin due to anemia. Recheck BMP in am secondary to hyponatremia and CBC in am secondary to anemia. 03/14/17 Sodium increased to 131 this morning, Potassium decreased to 3.5. Strength improving. Mentation clearing. Continue with NS at 50cc/hr to help with hydration and normalize serum sodium. Nursing to ambulate TID to help strength. Encourage oral intake - may have outside food brought in. Discussed with daughter about potential skilled care to help improve pt's strength. Concern they have is that patient will want her daughters to be with her there. 03/15/17 Sodium has normalized to 135. Strength and mentation at baseline. Eating well. Breathing well. Vit B12, Iron, Jo Ann pending. Discussed about discharge - daughter feels patient ready to go home. Daughter does not feel skill care would be helpful-family very capable with pt's care needs. No evidence of urinary tract infection this hospitalization - does not need antibiotics. Can discharge to home. CM to discuss about possible home health. Will have patient follow up with Dr Busby in 1 week for evaluation. Recommend rechecking BMP at that time due to hyponatremia. Have held Lexapro this hospitalization - potentially could cause hyponatremia. If repeat sodium showing decrease at follow up, changes to Lexapro could be done. See orders for details.
--- NOTE | 2017-03-15 15:18 | Discharge Summary ---
Discharge Information Date of admission: 03/12/17 10:17 Anticipated date of discharge: 03/15/17 Attending Physician: Nico Espinosa MD Primary care physician: Dalton Aparicio MD Consults: PT/OT - Discharge Diagnosis (1) Hyponatremia Status: Acute (2) Hypokalemia Status: Acute (3) Weakness Status: Acute Discharge diagnosis Hyponatremia (POA) - 119 - resolved Associated conditions and complications Hypokalemia (POA) - 3.2 Weakness Hypovolemia - FENa score 1% Neuropathy Anxiety Osteoarthritis History of cerebral hemorrhage/brain injury Anemia - suspect chronic disease Gait instability Generalized debility. - Laboratory Labs: Admit Lab 03/12/17 08:23 WBC 5.8 Hgb 8.8 L Hct 26.3 L MCV 85.1 Plt Count 168 Neut % (Auto) 63.4 Lymph % (Auto) 25.8 [place] % (Auto) 10.4 H Eos % (Auto) 0.2 Admit Lab 03/12/17 08:23 Sodium 119 L* Potassium 3.2 L D Chloride 89 L Carbon Dioxide 24 Anion Gap 6 BUN 11.0 D Creatinine 0.6 L GFR Calculation 95 BUN/Creatinine Ratio 18 Glucose 99 Calculated Osmolality 229 L Calcium 8.8 Total Bilirubin 0.50 AST 32 D ALT 38 Alkaline Phosphatase 103 Total Protein 6.6 Albumin 3.6 Globulin 3.0 Albumin/Globulin Ratio 1.2 Lipase 114 TSH 03/14/17 03:56 TSH 0.70 Pending Lab 03/14/17 03:56 Iron Pending Ferritin Pending Vitamin B12 Pending 03/15/17 04:18 03/15/17 04:18 - Microbiology None - Radiology Radiology: Date of Exam: 03/12/17 PROCEDURE: XR KUB w upright Findings: Lung bases are grossly clear. No free air identified. Nonobstructive nonspecific bowel gas pattern. Large amount of stool throughout the colon. Scoliosis and degenerative change in the spine with numerous chronic compression fractures in the lower thoracic and lumbar spine. Right femoral head replacement. Impression: Nonobstructive, nonspecific bowel gas pattern. History of Present Illness HPI: Mrs Esposito is an 86-year-old female who is being treated in the outpatient setting for urinary tract infection. She was placed on Bactrim for UTI on and the care of her primary care Dr Dalton Aparicio. She began having nausea and vomiting following this. She was brought to [facility] emergency department on 03/09/17 for vomiting. She was given IV hydration as she was mildly hyponatremic at that time with a sodium 123. Her antibiotic was changed to Keflex and patient was discharged. Since that time. She continues to have persistent vomiting with decreased oral intake and weakness. Patient was brought back to [facility] emergency room today for further evaluation. She was found to have significant hyponatremia with a sodium of 119 , potassium 3.2. Hemoglobin is 8.8, hematocrit 23.3, otherwise unremarkable. Urinalysis is obtained that is negative. Urine creatinine 37.8, urine sodium 72. She is afebrile, vital signs reviewed and normal. Given the severity of her hypo-and need treatment. He had accompanied with weakness and decreased oral intake. Spinal services were contacted and accepted patient for inpatient admission for further evaluation and treatment. Patient is Occitan speaking only, all collateral information is obtained from her 2 daughters who are her caregivers at the bedside. We did discuss advanced directives and they do wish for patient to be a full code For complete details of the H&P refer to that document. Objective Vital signs: Temperature 97.0 F 03/15/17 07:28 Pulse Rate 90 03/15/17 07:28 Respiratory Rate 22 03/15/17 07:28 Blood Pressure 129/69 03/15/17 07:28 Pulse Oximetry 96 03/15/17 07:28 Height/Weight/BMI: Height 1.63 m Weight 69.1 kg Body Mass Index 26.6 Hospital Course This is a general summary of the patient's hospital course. For more details refer to the complete medical record. Hospital course: 03/12/17 - admission Impression Weakness Hyponatremia- POA- 199 Hypokalemia- POA- 3.2 Hypovolemia- FENa score 1% Neuropathy Anxiety Osteoarthritis History of cerebral hemorrhage/brain injury Plan Admit patient. Inpatient status under care of Dr. Espinosa for weakness, hyponatremia, hypokalemia Hyponatremia is likely multifactorial. Patient has had decreased oral intake recently. She is also been on Bactrim and Lexapro, both which can cause hyponatremia. We will initiate IV fluids. Patient did receive 1 liter of normal saline in the emergency room. We will continue with normal saline at 75 ML per hour for gentle hydration. We will check serial electrolytes, next lab draw at 1300. Zofran available as needed for nausea Urinalysis is rechecked and is negative for acute infectious process. In no evidence of acute infectious process, normal white count and afebrile. There is currently no indication to continue antibiotics. FENa- 1% indications likely Pre-renal hypovolemia Monitor patient. Cardiac telemetry given electrolyte abnormalities. Review home medications. Once patient is more medically stable. Will place PT and OT consultations to evaluate patients strength she does reside independently and ambulates with a cane generally. We'll recheck CBC and BMP tomorrow morning to follow blood counts, renal function and electrolytes. Will discuss further orders and plan a. Attending, Dr. Espinosa. Patients family does request for her to be a full code and this orders written. At time of discharge medical care will return to her primary care provider, Dr. Dalton Aparicio Above corrections Impression Correction of above document Impression Hyponatremia- POA- 119 Hypokalemia- POA- 3.2 Weakness Hypovolemia- FENa score 1% Neuropathy Anxiety Osteoarthritis History of cerebral hemorrhage/brain injury Plan Admit patient. Inpatient status under care of Dr. Espinosa for weakness, hyponatremia, hypokalemia Hyponatremia is likely multifactorial. Patient has had decreased oral intake recently. She is also been on Bactrim and Lexapro, both which can cause hyponatremia. We will initiate IV fluids. Patient did receive 1 liter of normal saline in the emergency room. We will continue with normal saline at 75 ML per hour for gentle hydration. We will check serial electrolytes, next lab draw at 1300. Zofran available as needed for nausea Urinalysis is rechecked and is negative for acute infectious process. In no evidence of acute infectious process, normal white count and afebrile. There is currently no indication to continue antibiotics. FENa- 1% indications likely Pre-renal hypovolemia Monitor patient. Cardiac telemetry given electrolyte abnormalities. Review home medications. Once patient is more medically stable. Will place PT and OT consultations to evaluate patients strength she does reside independently and ambulates with a cane generally. We'll recheck CBC and BMP tomorrow morning to follow blood counts, renal function and electrolytes. Will discuss further orders and plan a. Attending, Dr. Espinosa. Patients family does request for her to be a full code and this orders written. At time of discharge medical care will return to her primary care provider, Dr. Dalton Aparicio 03/13/17 Sodium increased to 127 this morning, 132 with recheck at noon. Potassium normal at 3.8. Strength improving. Mentation clearing. Will continue with NS at 50cc/hr to help with hydration and normalize serum sodium. Consult PT/OT secondary to her generalize debility and gait instability. Nutritional supplement daily due to decreased oral drive. Check B12, iron and ferritin due to anemia. Recheck BMP in am secondary to hyponatremia and CBC in am secondary to anemia. 03/14/17 Sodium increased to 131 this morning, Potassium decreased to 3.5. Strength improving. Mentation clearing. Continue with NS at 50cc/hr to help with hydration and normalize serum sodium. Nursing to ambulate TID to help strength. Encourage oral intake - may have outside food brought in. Discussed with daughter about potential skilled care to help improve pt's strength. Concern they have is that patient will want her daughters to be with her there. 03/15/17 Sodium has normalized to 135. Potassium normal at 3.8. Strength and mentation at baseline. Eating well. Breathing well. Vit B12, Iron, [place] pending. Discussed about discharge - daughter feels patient ready to go home. Daughter does not feel skill care would be helpful-family very capable with pt's care needs. No evidence of urinary tract infection this hospitalization - does not need antibiotics. Can discharge to home. CM to discuss about possible home health. Will have patient follow up with Dr Aparicio in 1 week for evaluation. Recommend rechecking BMP at that time due to hyponatremia. Have held Lexapro this hospitalization - potentially could cause hyponatremia. If repeat sodium showing decrease at follow up, changes to Lexapro could be done. See orders for details. Time spent with patient: discharge greater than 30 minutes DVT Prophylaxis: SCD's Discharge Plan - Discharge Disposition Discharge Date: 03/15/17 Disposition: 86 Home Health Service *Condition: Stable Reason For Visit (Visit label in EMR): Hyponatremia - Discharge Medications *Discharge Medications: Continue Escitalopram [Lexapro] 10 mg PO HS Hydrocodone/APAP 10/325 [[place] 10/325] 1 tab PO Q6H PRN PRN Reason: Pain Ibuprofen/Diphenhydramine Cit [Advil Pm Caplet] 1 each PO HS Ondansetron [Zofran Odt] 1 tab PO Q6HR PRN #12 tab PRN Reason: Nausea &/Or Vomiting Discontinued CephALEXin [Keflex] 1 tab PO TID #21 cap - Discharge Packet/Instructions *Diet: Regular *Activity: As tolerated *Pain Management/Treatment: Continue pain medications as prior to hospiatlization *Wound Care: N/A *Expected Signs/Symptoms: Improvement of strength and abilities. *Notify Physician if: Temp >100.4. Increasing confusion, weakness. *During Business Hours Contact: Dr Aparicio *After Business Hours Contact: Dr Aparicio *Pending Lab/Results: Follow up w/Provider (Vitamin B12, ferritin, and Iron pending at discharge.) - Referrals/Follow Up - Patient Handouts Patient Handouts: Hyponatremia (GEN) - Dismissal Complete Discharge Instructions are:: Complete Physician Narrative - Narrative Physician: Nico Espinosa MD Attestation Narrative: Date: 03/15/17 Time: 4 I have independently interviewed and examined patient prior to discharge. See my progress note from today for details. Medically stable for discharge to home.
== END 2017-03-15 15:30 | disposition home or self-care (01) | DRG 641 ==
LOC: ED 07:40 → MED 10:17
PROVIDERS: ADMIT Hospitalist; ATTEND Hospitalist